=== PATIENT | female | born 1930 | race Caucasian/White ===

== ENCOUNTER → 2016-10-26 | Outpatient (CLI) | payer OTHER, MEDICARE | LOC: RAD 01:16 | DX: Z12.31 Encounter for screening mammogram for malignant neoplasm of breast (principal) ==

== ENCOUNTER → 2016-11-01 | Outpatient (CLI) | payer OTHER, MEDICARE | LOC: ULTRA 07:24 | DX: R92.2 Inconclusive mammogram (principal) ==

== ENCOUNTER 2017-01-10 20:38 | Emergency (ER) | payer OTHER, MEDICARE ==
[~2017-01-10] VITALS: Ht 165.1 cm; Wt 52.2 kg
--- NOTE | ~2017-01-10 | EKG ---
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 : [id number] Requested By: Nicole Jackson Order Number: [id number] MD: Kadeem Diaz Measurements Intervals [place] Rate: 61 P: 56 FL: 249 QRS: 33 QRSD: 83 T: 26 QT: 465 QTc: 469 Interpretive Statements Sinus rhythm Prolonged [place] interval Anteroseptal infarct, old Minimal ST depression, lateral leads No previous ECG available for comparison Electronically Signed On 01-11-2017 8:45:25 CDT by Kadeem Diaz [email or web address] <ELECTRONICALLY SIGNED> By: Kadeem Daiz MD, [facility] 01/11/17 [id number] Kadeem Diaz MD, FACC /EPI
[2017-01-10] MEDS ORDERED: ESTRIOL100 GM (21:08)
[2017-01-10] MEDS ORDERED: LEVOTHYROXIN0.025 MG (21:08)
[2017-01-10] MEDS ORDERED: BP PILL (21:09)
[2017-01-10] MEDS ORDERED: PROGESTERONE100 MG (21:09)
[2017-01-10] MEDS ORDERED: ASPIR 8181 MG PO (21:09)
[2017-01-10] MEDS ORDERED: PRIMIDONE50 MG PO (21:56)
[2017-01-10] MEDS ORDERED: HYDROXYZINE HCL25 M1 PO (21:56)
[2017-01-10] MEDS ORDERED: QUINAPRIL 20 MG20 MG PO (21:57)
[2017-01-10 22:09] LABS: ABSOLUTE NEUTROPHILS 6.3 thou/uL (1.4-8.2); BASOPHILS 0.7 % (0.0-2.0); EOSINOPHILS 3.2 % (0.0-3.0); HEMATOCRIT 43.7 % (37.0-47.0); HEMOGLOBIN 15.1 gm/dL (12.0-15.0); LYMPHOCYTES 21.2 % (24.0-44.0); MCH 30.7 pg (26.0-34.0); MCHC 34.5 g/dL (28.0-37.0); MCV 88.8 fL (80.0-100.0); MONOCYTES 6.8 % (1.0-8.0); PLATELET COUNT 301 thou/uL (150-400); POLYS 68.1 % (36.0-66.0); RBC 4.92 mil/uL (4.20-5.00); RDW 14.3 % (10.5-14.5); WBC 9.3 thou/uL (4.0-11.0)
[2017-01-10 22:15] LABS: ANION GAP 8 mmol/L (7-16); BUN 10 mg/dL (7-18); CALCIUM 9.5 mg/dL (8.5-10.1); CHLORIDE 102 mmol/L (98-107); CO2 29 mmol/L (21-32); CREATININE 0.7 mg/dL (0.6-1.0); GLUCOSE 103 mg/dL (74-106); POTASSIUM 3.7 mmol/L (3.5-5.1); SODIUM 139 mmol/L (136-145)
[2017-01-10 22:24] LABS: ALBUMIN 3.8 g/dL (3.4-5.0); ALKALINE PHOSPHATASE 86 U/L (46-116); SGOT 22 U/L (15-37); SGPT 18 U/L (30-65); TOTAL BILIRUBIN 0.3 mg/dL (<0.1-1.0); TROPONIN-I < 0.04 ng/mL (<0.04-0.07)
[2017-01-10 22:35] LABS: MANUAL DIFF NO
[2017-01-10 23:28] VITALS: BP 174/81
== END 2017-01-10 23:28 | disposition home or self-care (01) ==
LOC: ER 20:38
PROVIDERS: Physician Assistant
DX: S01.01XA Laceration without foreign body of scalp, initial encounter (principal); R42 Dizziness and giddiness; F17.210 Nicotine dependence, cigarettes, uncomplicated; F10.99 Alcohol use, unspecified with unspecified alcohol-induced disorder; I10 Essential (primary) hypertension; E03.9 Hypothyroidism, unspecified; Z88.6 Allergy status to analgesic agent; Z88.8 Allergy status to other drugs, medicaments and biological substances; W18.09XA Striking against other object with subsequent fall, initial encounter; Y93.01 Activity, walking, marching and hiking; Y92.092 Bedroom in other non-institutional residence as the place of occurrence of the external cause; Y99.8 Other external cause status

== ENCOUNTER → 2017-10-30 | Outpatient (CLI) | payer OTHER, MEDICARE ==
[~2017-10-30] MED LIST: ASPIR 8181 MG PO; BP PILL; ESTRIOL100 GM; HYDROXYZINE HCL25 M1 PO; LEVOTHYROXIN0.025 MG; PRIMIDONE50 MG PO; PROGESTERONE100 MG; QUINAPRIL 20 MG20 MG PO
== END ==
LOC: RAD 01:37
DX: Z12.31 Encounter for screening mammogram for malignant neoplasm of breast (principal)